=== PATIENT | male | born 1945 | race Caucasian/White ===

== ENCOUNTER 2018-05-25 05:39 | Observation (INO) | payer OTHER ==
[~2018-05-25] VITALS: Ht 175.3 cm; Wt 87.1 kg
[~2018-05-25 05:39] MED LIST: ASPIR 8181 MG PO; ATORVASTATIN CA40 MG PO; CENTRUM SILVER1 EAC2 PO; GINKGO BILOBA500 MG PO; GLUCOSAMINE CH1 EAC2 PO; IBUPROFEN 200200 M1 PO; NEURONTIN600 MG PO; NORCO 5-325 TA1 EACH PO; OMEPRAZOLE40 MG PO; PROBIOTIC1 EAC1 PO; SAW PALMETTO500 MG PO; VITAMIN C500 M1 PO; VITAMIN E400 UNIT PO; XALATAN2.5 ML OPHTHALMIC
[2018-05-25 07:14] VITALS: BP 148/68
[2018-05-25 08:00] VITALS: BP 137/70
[2018-05-25 12:10] VITALS: BP 137/70
--- NOTE | 2018-05-25 14:11 | NUR ---
ARRIVED FROM PACU ON CART. MOVED TO THE BED BY DRAW SHEET. AAOX4. VERY PLEASANT AND COOPERATIVE. RIGHT HIP DRESSSING DRY AND INTACT WITH ICE VIA POLAR PACK. RIGHT HAND SALINE LOCK INTACT. LUNGS CLEAR ON ROOM AIR. PEDAL PULSES 2+. AT BEDSIDE.
[2018-05-25 19:29] VITALS: BP 126/60
--- NOTE | 2018-05-26 03:20 | NUR ---
ASSUMED CARE AROUND 1899. AXOX4. R HIP REPAIR. DRESSING CXDXI. PAIN MANAGED PER MD ORDER. IV ATB ANCEF COMPLETED. WALKS TO THE BATHROOM WITH WALKER. NO S/S ACUTE DISTRESS NOTED OR REPORTED AT THIS TIME. WILL CONT TO MONITOR FOR ANY CHANGES IN CONDITION.
[2018-05-26 04:06] VITALS: BP 109/60
[2018-05-26 07:35] VITALS: BP 125/57
[2018-05-26] MEDS ORDERED: FLEXERIL PO (08:22)
[2018-05-26 09:39] VITALS: BP 125/57
--- NOTE | 2018-05-26 10:41 | NUR ---
ASSUMED PATIENT CARE AT 0715. A&OX4. PAIN UNDER CONTROL WITH PERCOCET. PARTIAL WEIGHT BEARING RIGHT LOWER EXTREMITY. BRACE IN PLACE FOR AMBULATIONS AND IF PATIENT IS UP TO A CHAIR. AQUACELL DRESSING C/D/I. PATIENT CLEARED FOR DISCHARGE BY THERAPY AND DOCTOR. ALL DISCHARGE INSTRUCTIONS DISCUSSED. DISCHARGE PAPERWORK SIGNED.
--- NOTE | 2018-05-27 06:10 | O ---
[facility] [place] [address] OPERATIVE REPORT Name: SUMIT SLATER Room #: 458-P [facility] Cheri#: [id number] Admission: 05/25/18 ������������������ Attend Phys: Yrn Cunningham MD Discharge: 05/26/18 ������������������ Date of : 45 Report #: [id number] THIS REPORT FOR: //name// CC: Yrn Cunningham Monica Price DATE OF SERVICE: 05/25/2018 SERVICE: Orthopedics. FACILITY: [facility]. SURGEON: Yrn Cunningham MD LONG TERM: Claudia Almendarez NP. PREOPERATIVE DIAGNOSES: 1. Right hip pain. 2. 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 3. Gait dysfunction. POSTOPERATIVE DIAGNOSES: 1. Right hip pain. 2. 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 3. Gait dysfunction. PROCEDURE: Right hip open abductor tendon repair with trochanteric bursectomy. COMPLICATIONS: None. DRAINS: None. SPECIMENS: None. ANESTHESIA: General. FINDINGS: 1. High-grade tear of the abductor tendon, treated with primary repair. 2. Eva ReelX anchor x 2 with tape suture. HISTORY: The patient is a 73-year-old gentleman who has been having significant lateral-sided hip pain and gait disruption for quite some time. He tried extensive conservative therapy including several months' worth of formal physical therapy, as well as home-based physical therapy and home exercise program, but continued to have significant difficulties, was causing him pain and trouble walking and he would like to undergo a definitive treatment after [facility] [address] [place] [address] OPERATIVE REPORT Name: SUMIT SLATER Room #: 458-P [facility] Cheri#: [id number] Admission: 05/25/18 ������������������ Attend Phys: Yrn Cunningham MD Discharge: 05/26/18 ������������������ Date of : 45 Report #: [id number] the conservative measures have failed. Imaging was consistent with an abductor tendon tear as was the exam. Risks, benefits, alternatives and indications for surgery were discussed with him in detail. Risks include but not limited to pain, bleeding, infection, injury to nerves or blood vessels, persistent pain despite surgical intervention, failure of any repairs, progression of any preexisting chondral injury, stiffness, need for further surgery as well as complications related to anesthesia such as stroke, heart attack, pulmonary complications, thromboembolic disease and . Despite the risks, he wished to proceed. PROCEDURE IN DETAIL: After right lower extremity was correctly identified in the preoperative holding area as the operative extremity, the patient was taken to the operating where general anesthesia was induced without complication. He was padded appropriately. Prophylactic antibiotics were administered at appropriate time. He was in the lateral decubitus position with the right side up. Right leg was prepped and draped in standard sterile fashion. Time-out procedure was performed. Standard incision was made via a lateral incision over the greater trochanter and the abductor tendon. Dissection was taken down to the IT band layer, which was incised and then retracted, allowing access to the trochanter, which was obviously bald from a chronic tendon tear. The tissue was retracted proximally, both anteriorly and posteriorly. The majority of the tissue anteriorly was healthier. I used a rongeur to debride the tendinopathy at the insertion and then gently abraded the trochanteric bone in order to generate a bleeding surface. I used a small osteotome to make superficial cuts in bone as well to fish scale it in order to again encourage healing of the tendon. Total of 2 [place] labral tape sutures were then utilized with a U shaped running locking stitch running from distal to proximal and then back down distally and incorporating the gluteus medius and the minimus tendons. This was done twice with an essentially two-row suture anchor configuration with the [place] ReelX anchors, 1 posterior and proximal, a second more anterior and distal with care taken to ensure different planes. These were tightened while visualizing the tendon advancement and palpating, a good strong repair was achieved. Suture limb from each was then used to oversew the tissue for superficial layer reinforcement. The wound was irrigated. A gram of vancomycin powder was placed within the wound and then the fascial layer was closed with 0 Vicryl suture in [id number] fashion. The fat layer was closed with 0 Vicryl. The skin was closed with 2-0 Vicryl, followed by running subcuticular 3-0 Monocryl. Dermabond and sterile dressing was applied. [facility] [address] [place] [address] OPERATIVE REPORT Name: SUMIT SLATER Room #: 458-P [facility] Alonzo#: [id number] Admission: 05/25/18 ������������������ Attend Phys: Yrn uCnningham MD Discharge: 05/26/18 ������������������ Date of : 45 Report #: [id number] He will be 30 pounds partial weightbearing right lower extremity with assistive device in a brace postoperatively. ��������������������������������������������� <ELECTRONICALLY SIGNED> ���������������������������������������� By: Yrn Cunningham MD ��������������������������������������������� 05/27/18 0610 [id number] Yrn Cunningham MD /nt
== END 2018-05-26 11:19 | disposition home or self-care (01) ==
LOC: TBA 05:39 → OR 05:39 → TBA 05:40 → OR 09:19 → 4W 11:21 → OR 11:22 → 4W 11:22
PROVIDERS: ADMIT Orthopaedic Surgery Sports Medicine
DX: S76.011A Strain of muscle, fascia and tendon of right hip, initial encounter (principal); R26.9 Unspecified abnormalities of gait and mobility
CPT/HCPCS: 10047; 50010; 50101; 50382; 50414; 51320; 52001; 52256; 52282; 53078; 54118; 55430; 56526; 56527; 56528; 57103; 62110; 62900; 70005